=== PATIENT | male | born 1975 | race Caucasian/White ===

== ENCOUNTER 2018-01-16 00:11 | Emergency (ER) | payer OTHER ==
[~2018-01-16] VITALS: Ht 160 cm; Wt 49.9 kg
[2018-01-16] MEDS ORDERED: NKM (00:20)
[2018-01-16 00:23] VITALS: BP 121/86
--- NOTE | 2018-01-16 00:50 | Emergency Room Report ---
History of Present Illness General Chief Complaint: Substance Abuse Source: Patient Present Illness HPI This patient is here without specific medical complaint. He uses meth and now he is ok. He has a long meth hx. No trauma, no fever, no shortness of breath, no chest pain, no nausea, no vomiting, no diarrhea, no abdominal pain, no syncope, LOC, dizziness, lightheadedness, headache. Allergies: Coded Allergies: ESCITALOPRAM (Verified Allergy, Unknown, 01/16/18) Nursing Documentation-PMH Hx Gastrointestinal Problems: Yes - GERD Review of Systems Constitutional: Denies: fever Eye: Denies: acuity changes Respiratory: Denies: cough, shortness of breath Cardiovascular: Denies: chest pain Gastrointestinal: Denies: nausea, vomiting Skin: Denies: rash Neurological: Denies: headache Physical Exam Vital Signs Date Time Temp Pulse Resp B/P (MAP) Pulse Ox O2 Delivery O2 Flow Rate FiO2 01/16/18 00:16 100.0 99 18 121/86 100 Room Air 100.0 General Appearance: well appearing, no apparent distress, thin, other - looks older than stated age Head: normocephalic, atraumatic ENT: hearing grossly normal, normal voice Neck: full range of motion, supple Respiratory: no respiratory distress, speaking full sentences Cardiovascular #1: normal peripheral pulses, regular rate, rhythm Gastrointestinal: non tender Musculoskeletal: no calf tenderness Neurologic: alert, normal gait Psychiatric: mood/affect normal Skin: no rash, other - skin picking borrero; prior lue surgery Medical Decision Making Diagnostic Impression: Primary Impression: Substance abuse Last Vital Signs Date Time Temp Pulse Resp B/P (MAP) Pulse Ox O2 Delivery O2 Flow Rate FiO2 01/16/18 00:23 100.0 99 18 121/86 100 Room Air 100.0 Disposition: HOME, SELF-CARE Patient Instructions: Stimulant Use Disorder-Aldo King M.D. Jan 16, 2018 00:50
[2018-01-16 01:29] VITALS: BP 121/86
== END 2018-01-16 01:30 | disposition home or self-care (01) ==
LOC: EDBD 00:11 → EMR 00:58
DX: F15.10 Other stimulant abuse, uncomplicated (principal); K21.9 Gastro-esophageal reflux disease without esophagitis
CPT/HCPCS: 99284

== ENCOUNTER 2019-07-19 11:48 | Emergency (ER) | payer SELFPAY, OTHER ==
[~2019-07-19] VITALS: Ht 160 cm; Wt 54.4 kg
[~2019-07-19 11:48] MED LIST: NKM
[2019-07-19 11:52] VITALS: BP 117/74
--- NOTE | 2019-07-19 11:52 | NUR ---
ED Nurse Note: pt arrived with Mindy Titus, due to "stiches on his penis that need to be removed". pt denies pain at the moment. NAD noted.
[2019-07-19] MEDS ORDERED: BACITRACIN ZIN1 EACH TOPIC (12:24)
[2019-07-19] MEDS ORDERED: DOXYCYCLINE MO100 MG ORAL (12:24)
[2019-07-19] MEDS ORDERED: CEPHALEXIN500 MG ORAL (12:24)
--- NOTE | 2019-07-19 12:26 | Emergency Room Report ---
History of Present Illness General Chief Complaint: Wound Recheck/Suture Removal Source: Patient Present Illness HPI 43 -year-old male presents for wound check. Patient had recently had surgery at [facility] for reported infection. He reports having increased sticking from wound. He states he had recently been on antibiotics but had finished these. Denies any increased swelling. Patient had been brought in with traffic lieutenant custody. Allergies: Coded Allergies: ESCITALOPRAM (Verified Allergy, Unknown, 01/16/18) Patient History Past Medical History: see triage record Reviewed Nursing Documentation: PMH: Agreed; PSxH: Agreed Nursing Documentation-PMH Past Medical History: No History, Except For Hx Gastrointestinal Problems: Yes - GERD Review of Systems All Other Systems: negative except mentioned in HPI Physical Exam Vital Signs Date Time Temp Pulse Resp B/P (MAP) Pulse Ox O2 Delivery O2 Flow Rate FiO2 07/19/19 11:49 98.1 91 16 117/74 (88) 100 Room Air General Appearance: well appearing, no apparent distress, alert, GCS 15 Head: normocephalic, atraumatic ENT: hearing grossly normal, normal voice Neck: full range of motion, supple Respiratory: no respiratory distress, speaking full sentences Cardiovascular #1: normal inspection Gastrointestinal: normal inspection Musculoskeletal: other - Healing wound, no erythema or significant discharge noted. Slight crusting to the area Neurologic: alert, assembler equipment III-XII nml as tested, oriented x3, normal gait Psychiatric: mood/affect normal Skin: other - healing wound, slight crusting. Medical Decision Making Diagnostic Impression: Primary Impression: Visit for wound check ER Course Patient presented for wound check. Differential diagnosis include was not limited to healing wound, infection, dehiscence among others. Patient has a benign exam and does not appear to require any imaging or laboratory testing at this time. Patient appears to have a slowly healing wound. Patient's wound appears to have some slight serous drainage topical antibiotics were initiated. Patient is medically cleared for incarceration. Patient was prescribed oral antibiotics although this does not definitely appear to be infected at this time. The patient is advised to follow up with his surgeon. Patient is advised to return if any worsening condition or if any changes in status that are concerning. This report is dictated with [employer] scanner operator software which may occasionally lead to discrepancies related to use of this software. Last Vital Signs Date Time Temp Pulse Resp B/P (MAP) Pulse Ox O2 Delivery O2 Flow Rate FiO2 07/19/19 11:52 98.1 88 16 117/74 100 Room Air Status: improved Disposition: D/C TO LAW ENFORCEMENT IN CUST Condition: Stable Scripts Doxycycline Monohydrate* (DOXYCYCLINE MONOHYDRATE*) 100 Mg Capsule 100 MG ORAL Q12H, #14 CAP 0 Refills Prov: Doug Justin MD 07/19/19 Cephalexin* (KEFLEX*) 500 Mg Capsule 500 MG ORAL EVERY 6 HOURS, #20 CAP Prov: Doug Justin MD 07/19/19 Bacitracin Zinc* (BACITRACIN ZINC*) 1 Each Packet 1 APPLIC TOPIC THREE TIMES A DAY, #30 PACKET Prov: Doug Justin MD 07/19/19 Departure Forms: Half-Way Clearance Patient Instructions: Wound Check Additional Instructions: Follow up with your surgeon for recheck. Return if any concerns. Doug Justin MD Jul 19, 2019 12:26
[2019-07-19] MEDS ORDERED: Bacitracin Oint UD TOPIC ONE ×2 (12:30→12:31)
[2019-07-19 12:33] VITALS: BP 117/74
--- NOTE | 2019-07-19 12:34 | NUR ---
Note undone in EDM - 07/19/19 at 1236 by ESVIN ER DISCHARGE NOTE: Patient is cleared to be discharged per ERMD DR MA, patient is medically clear. pt is aox4, on room air, with stable vital signs. pt was given dc and prescription instructions, pt was able to verbalize understanding, pt id band removed without complications. pt is able to ambulate with steady gait. pt took all belongings.
--- NOTE | 2019-07-19 12:37 | NUR ---
ED Nurse Note: Patient is cleared to be discharged per SHARLA MA, patient is medically clear. patient is on custody. pt is aox4, on room air, with stable vital signs. pt was given dc and prescription instructions, pt was able to verbalize understanding, pt id band removed without complications. pt is able to ambulate with steady gait. pt took all belongings. patient left ED with [employer].
== END 2019-07-19 13:00 ==
LOC: EMR 12:45
DX: Z09 Encounter for follow-up examination after completed treatment for conditions other than malignant neoplasm (principal); Z88.8 Allergy status to other drugs, medicaments and biological substances
CPT/HCPCS: 99282